=== PATIENT | male | born 1980 | race Caucasian/White ===

== ENCOUNTER 2016-05-31 11:17 | Emergency (ER) | payer OTHER ==
[~2016-05-31 11:17] MED LIST: EC-NAPROSYN500 MG PO; FLEXERIL10 MG PO; MULTIPLE VITAMI1 T11 PO; PERCOCET 10/3251 TAB PO
== END 2016-05-31 12:06 | disposition home or self-care (01) ==
LOC: SED 11:17
DX: S39.012A Strain of muscle, fascia and tendon of lower back, initial encounter (principal); F17.210 Nicotine dependence, cigarettes, uncomplicated; Z98.890 Other specified postprocedural states; X58.XXXA Exposure to other specified factors, initial encounter; Y92.9 Unspecified place or not applicable
CPT/HCPCS: 96372; 99283; J2360